=== PATIENT | female | born 1995 ===

== ENCOUNTER → 2020-03-22 09:15 | Outpatient (BNVA) | payer OTHER, SELFPAY | PROVIDERS: PCP Internal Medicine; Referring Provider Internal Medicine; Visit Provider Nurse Practitioner | DX: Z13.89 Encounter for screening for other disorder (principal) | CPT/HCPCS: 99212 ==

== ENCOUNTER → 2020-10-18 09:36 | Outpatient (BNVA) | payer OTHER, SELFPAY | PROVIDERS: PCP Internal Medicine; Visit Provider Nurse Practitioner ==

== ENCOUNTER → 2020-12-20 09:21 | Outpatient (BNVA) | payer OTHER, SELFPAY | PROVIDERS: PCP Internal Medicine; Visit Provider Nurse Practitioner ==

== ENCOUNTER 2021-01-14 11:00 | Outpatient (RCR) | payer OTHER, SELFPAY ==
--- NOTE | 2020-12-24 15:17 | MHC.PT.EP ---
[facility] [place] Office [place] Office [place] Office [address] [place] [address] [phone] F: [phone] F: [phone] F: [phone] F: [phone] Physical Therapy Plan of Care Date of Evaluation: Date of Surgery: Diagnosis: unspecified thoracic, thoracolumbar and lumbosacral spine Assessment: 25 y/o F referred to PT with unspecified thoracic, thoracolumbar and lumbosacral spine pain. Her pain started following the vaginal of her second child in July. 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 S/s consistent with instability and mild diastasis secondary to decreased lumbar/hip rotator AROM, decreased core and hip strength, poor TAC engagement, SI appears WNL but (+) thrush and prone insatbilty test, 3-finger diastasis recti above umbliicus, and pain with PA mobiltization L3-5. Recommend PT2x/week for 5 weeks to address impairments, implement HEP and optimize functional mobility. POC to include core stabilization, avoiding valsava, body mechanics, hip AROM, manual techniques, and taping as needed. Frequency and Duration: The patient will be seen 2x/week for 5 weeks Short Term Goals: 3 weeks 1. I with HEP 2. Improve hip ER AROM by 5 degrees 3. Perform TAC without cues properly. Jail Goals: 5 weeks 1. I with HEP and self management of sx 2. Pt will be able to lift > 25# with proper mechanics and pain < 3/10 3. 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 Manual therapy to restore motion and function. Therapeutic exercise to improve strength and flexibility. Neuromuscular re-education for posture and balance. Therapeutic activities to return to functional activities of daily living. Electronically signed by: Miriam Denney PT Please sign and return to therapist. Thank you for your referral.
--- NOTE | 2021-02-21 08:14 | MHC.PT.DC ---
[facility] [place] [facility] [place] [facility] [place] Office [address] [place] [address] [phone] F: [phone] F: [phone] F: [phone] F: [phone] Physical Therapy Discharge Report Diagnosis: unspecified thoracic, thoracolumbar and lumbosacral spine Date of Surgery: Date of Evaluation: 12/24/20 Date of Discharge: 02/21/21 Treatments to Date: 6 Cancellations to Date: 0 No Shows to Date: 0 Discharge Status: Improved Function Independent with HEP Discharge Summary: Pt did not f/u with final visit but was making good progress towards goals and was I with HEP. Electronically signed by: Miriam Denney PT DPT Please sign and return to therapist. Thank you for your referral.
== END 2021-02-21 08:15 | disposition home or self-care (01) ==
LOC: HO.PT 11:00
PROVIDERS: PCP Internal Medicine; Visit Provider Internal Medicine
DX: M51.9 Unspecified thoracic, thoracolumbar and lumbosacral intervertebral disc disorder (principal)
CPT/HCPCS: 97110; 97112; 97161; 97530

== ENCOUNTER 2023-02-23 10:11 | Emergency (ER) | payer OTHER, SELFPAY ==
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
[2023-02-23 10:20] VITALS: BP 121/72; BP 124/78; PULSE 67; PULSE 72; RESP 16; TEMP 36.7; O2SAT 99; BMI 22.2
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
[2023-02-23] MEDS: Acetaminophen 325 MG TABLET 650 MG PO (11:06)
[2023-02-23] MEDS: Ibuprofen 600 MG TABLET PO (11:06)
--- NOTE | 2023-02-23 11:14 | PC.NURSE ---
pt medicated per MAR
== END 2023-02-23 11:46 | disposition home or self-care (01) ==
PROVIDERS: Emergency Provider Emergency Medicine; PCP Internal Medicine
DX: S13.4XXA Sprain of ligaments of cervical spine, initial encounter (principal); S00.83XA Contusion of other part of head, initial encounter; V43.52XA Car driver injured in collision with other type car in traffic accident, initial encounter; M25.561 Pain in right knee; Y93.89 Activity, other specified; Y92.414 Local residential or business street as the place of occurrence of the external cause; Y99.9 Unspecified external cause status
CPT/HCPCS: 70450; 72125; 73564; 99283; 99284

== ENCOUNTER 2024-02-18 08:36 | Outpatient (AMB) | payer OTHER, SELFPAY ==
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
[2024-02-18 08:41] VITALS: BP 110/70; BMI 21.0
== END 2024-02-18 09:24 | disposition home or self-care (01) ==
LOC: HO.HMCH 08:36
PROVIDERS: PCP Internal Medicine; Visit Provider Internal Medicine
DX: Z72.0 Tobacco use (principal); J45.20 Mild intermittent asthma, uncomplicated; K64.0 First degree hemorrhoids; L81.9 Disorder of pigmentation, unspecified; Z23 Encounter for immunization

== ENCOUNTER → 2024-02-18 08:36 | Outpatient (BNVA) | payer OTHER, SELFPAY | PROVIDERS: PCP Internal Medicine; Visit Provider Internal Medicine | DX: Z23 Encounter for immunization (principal); J45.20 Mild intermittent asthma, uncomplicated; K64.0 First degree hemorrhoids; L81.9 Disorder of pigmentation, unspecified; Z72.0 Tobacco use | CPT/HCPCS: 90471; 90656; 96127; 99212 ==

== ENCOUNTER 2024-02-25 09:30 | Outpatient (AMB) | payer OTHER, SELFPAY ==
[2024-02-25 09:32] VITALS: BMI 21.0
--- NOTE | 2024-02-25 09:32 | A.OFFVIS_ITS ---
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 Started 1 yr ago and getting worse. 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 She states it initially started on her right lower extremity approximately a year ago, states that when the weather gets colder it seems to get darker. She denies any pain and denies any itchiness. Complaints include slight swelling of lower extremities, cramping, fatigue, and heaviness of the lower extremities, especially towards the end of the day. It has been affecting their daily activities including walking and standing. It is noted more so in left; however, it started in her right lower leg. She does smokes 3 cigarettes a day. She is on her feet most of her day. She is not a diabetic Patient denies any previous venous surgery or injections. Patient denies any history of DVT/ PE. Patient denies any history of phlebitis. Trial of compression includes - nothing at this point They now present for vascular evaluation regarding their varicose veins. PENDING SALE TO [facility] Medical History Irritable bowel syndrome Attention deficit disorder Anxiety Asthma Tobacco abuse Surgical History History of esophagogastroduodenoscopy (EGD) Hx of colonoscopy No pertinent past surgical history Family History Father Medical history unknown Mother No problems noted. 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 Cognitive needs: No Hearing needs: No Vision needs: Yes (Glass) Review of Systems Const Reports as per HPI and Denies weakness ENT Reports Normal hearing present and Denies dizziness Card Reports as per HPI, Denies chest pain, Denies chest pain at rest, Denies chest pain with activity, Denies dyspnea and Denies dyspnea on exertion Resp Reports as per HPI, Denies cough, Denies dyspnea and Denies dyspnea on exertion GI Reports as per HPI, Denies abdominal pain, Denies nausea and Denies vomiting Musc Denies numbness Skin/Breast Reports as per HPI, Denies erythema and Denies wounds Neuro Reports Normal hearing present, Denies dizziness, Denies numbness, Denies Sensory deficit (Neuro) and Denies weakness Psych Reports no additional complaints Endo Reports no additional complaints Physical Exam Vital Signs: BMI result Body Mass Index 21.0 Const General: healthy appearing and no acute distress Orientation/consciousness: patient oriented x3 HEENT Head: Yes normal to inspection Ears: hearing grossly normal bilaterally Mouth: Normal oral and palatal mucosa present Resp Effort & Inspection: normal respiratory effort and able to speak in complete sentences Auscultation: clear to auscultation bilaterally Cardio Jugular venous distension: no JVD Rate: regular rate Rhythm: regular rhythm Heart sounds: S1 normal heart sound present and S2 normal heart sound present Bruits: no abdominal aortic bruits, no carotid bruits, no femoral bruits and no renal bruits Peripheral pulses: Peripheral pulses 2+ throughout GI Inspection: Yes normal to inspection Palpation (GI): No Abdominal aortic bruit present Skin General skin exam: no rashes or lesions noted Wounds: no wounds Hair: normal Neuro General: patient oriented x3 Cranial nerves: Yes Normal hearing present Cognition (Neuro): normal cognition Gait exam (Neuro): Normal gait present Motor exam (neuro): 5/5 motor strength present throughout Sensory Exam: No Sensory deficit (Neuro) Extrem Other: Left lower extremity: mottling (deeper red) in a lacy like pattern from just above her knee, circling down the tibial plateau and towards the medial aspect of her manley. Not painful to palpation. Palpable DP pulses. Right lower extremity: same mottling noted, in a smaller section on the medial aspect of her manley, and decreased in color General: Yes normal to inspection, Yes full ROM, Yes capillary refill normal and Yes normal gait Assessment & Plan Assessment & Plan (1) Varicose veins of both lower extremities with inflammation: Code(s): I83.11 - Varicose veins of right lower extremity with inflammation; I83.12 - Varicose veins of left lower extremity with inflammation Category: Medical Plan: Birdie is presenting today as a referral from her PCP for ongoing discoloration over bilateral lower extremities. She denies any trauma to the area. She currently is healthy with no significant medical conditions. She states this has been going on for about a year now. It initially started on her right leg and now has expanded to her left lower extremity. She denies any pain or itchiness at the sites. She does endorse she gets some heavy legs with some swelling towards the end of the day, she does spend most of her days on her feet. We will work her up for venous insufficiency, we did order a US. In short, the patient has evidence of venous insufficiency. I have discussed the pathophysiology with the patient. In addition I have provided informational material regarding venous disease to the patient. We have discussed conservative measures including compression, elevation, and exercise. I have also provided a handout regarding appropriate use of compression stockings and where to purchase good compression stockings as well. I have taken the liberty of ordering venous insufficiency testing with the patient. They will follow up with me after testing. Upon further investigation after the patient left, it appears that the skin is in a livedo reticularis pattern. We will continue with the venous insufficiency testing to rule that out. The patient had an opportunity to ask questions regarding the treatment plan. All questions were answered. No major barriers to understanding were identified. The patient expressed understanding and agreement with the above treatment plan . The patient is aware they should contact our office by phone for worsening of the current condition or the appearance of new symptoms. Thank you for allowing me to participate in the vascular care of this patient. If you have any questions or concerns regarding the treatment for the above condition please do not hesitate to contact me. The office telephone contact is [phone]. This note is constructed using voice recognition software. While every effort has been made to ensure accuracy, hims clerk errors may have been included. Thank you for allowing me to participate in the care of your patient. Yours sincerely, DRISS Holguin Orders: Orders US venous duplex LE BI 1 Week I83.11 - Varicose veins of right lower extremity with inflammation, I83.12 - Varicose veins of left lower extremity with inflammation Coding Level of Care Code New Pt Level 4 (94569) Diagnoses Varicose veins of both lower extremities with inflammation I83.11; I83.12
== END 2024-02-25 09:46 | disposition home or self-care (01) ==
PROVIDERS: PCP Internal Medicine; Visit Provider Physician Assistant Surgical
DX: I83.11 Varicose veins of right lower extremity with inflammation (principal); I83.12 Varicose veins of left lower extremity with inflammation
CPT/HCPCS: 99204

== ENCOUNTER → 2024-02-25 09:30 | Outpatient (BNVA) | payer OTHER, SELFPAY | PROVIDERS: PCP Internal Medicine; Visit Provider Physician Assistant Surgical | DX: I83.11 Varicose veins of right lower extremity with inflammation (principal); I83.12 Varicose veins of left lower extremity with inflammation | CPT/HCPCS: 99202 ==

== ENCOUNTER 2024-02-28 15:24 | Outpatient (AMB) | payer OTHER, SELFPAY ==
[2024-02-28 15:26] VITALS: BMI 21.0
--- NOTE | 2024-02-28 15:26 | MHC.OFFVIS ---
Vital Signs 02/28/24 15:26 Height 5 ft 4.5 in Weight 123 lb 15.984 oz BMI 21.0 Intake Visit Reasons: Hemorrhoids Intake Note: This patient presents for hemorrhoids. Pt c/o; Onset over 1 year, reports rectal bleeding and pain. 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 She says that she has had hemorrhoids since she was about 5 years ago. However, she has been noticing worsening of discomfort and pain. She was also notice bleeding on and off. She says that the hemorrhoids as mostly outside all the time now. She denies any problems with constipation. She says she was healthy otherwise also does have some IBS. [facility] Medical History Hemorrhoids with complication Irritable bowel syndrome Attention deficit disorder Anxiety Asthma Tobacco abuse Surgical History History of esophagogastroduodenoscopy (EGD) Hx of colonoscopy No pertinent past surgical history Family History Father Medical history unknown Mother No problems noted. 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 A smaller hemorrhoidal column was seen posteriorly as well. Palpation (GI): Soft to palpation, nontender and no guarding Neuro General: patient oriented x3 Office Procedures Anoscopy She was in lucio-knife position. The anoscope was gently inserted. A full examination of the anal canal was done. She did have a large external hemorrhoidal column with a an internal component on the anterior aspect. There was another hemorrhoidal column on the posterior on the left. There were no other lesions. There was no fissure. There was no bleeding. There was no tenderness or induration. [id number] Assessment & Plan Assessment & Plan (1) Hemorrhoids with complication: Code(s): K64.8 - Other hemorrhoids Category: Medical Plan: She has internal external hemorrhoids as described above. The large column posteriorly. She says that this has been bothering her with pain, tenderness and discomfort as well as bleeding and this have been worsening over the years. She wants to proceed with hemorrhoidectomy. I had a long discussion with her about the technique of the procedure. I explained the risks including but not limited to bleeding, infections, postop pain and poor healing, as well as the benefits and alternatives. I also reviewed with her what to expect postoperatively. She had understands and wants to proceed. Coding Level of Care Code New Pt Level 3 (77264) Diagnoses Hemorrhoids with complication K64.8 CPT Codes Details - CPT: 14462-[id number] ([id number])
== END 2024-02-28 15:44 | disposition home or self-care (01) ==
PROVIDERS: PCP Internal Medicine; Visit Provider Surgery
DX: K64.8 Other hemorrhoids (principal)
CPT/HCPCS: 46600; 99203

== ENCOUNTER → 2024-02-28 15:24 | Outpatient (BNVA) | payer OTHER, SELFPAY | PROVIDERS: PCP Internal Medicine; Visit Provider Surgery | DX: K64.8 Other hemorrhoids (principal) | CPT/HCPCS: 46600; 99202 ==

== ENCOUNTER 2024-03-16 10:20 | Outpatient (REF) | payer OTHER, SELFPAY | END 2024-03-16 10:21 | disposition home or self-care (01) | LOC: HO.US 10:20 | PROVIDERS: PCP Internal Medicine; Visit Provider Physician Assistant Surgical | DX: I83.11 Varicose veins of right lower extremity with inflammation (principal); I83.12 Varicose veins of left lower extremity with inflammation | CPT/HCPCS: 93970 ==

== ENCOUNTER → 2024-03-16 10:22 | Outpatient (BNV) | payer OTHER, SELFPAY | PROVIDERS: PCP Internal Medicine; Visit Provider Radiology Diagnostic Radiology | DX: I83.12 Varicose veins of left lower extremity with inflammation (principal) | CPT/HCPCS: 93970 ==

== ENCOUNTER 2024-03-17 07:45 | Day surgery (SDC) | payer OTHER, SELFPAY ==
[2024-03-15 10:10] VITALS: BMI 21.0
--- NOTE | 2024-03-16 10:18 | HO.ANESPROP2 ---
Documented by User: Francisca Cramer NP 03/16/24 10:18 HPI - Anesthesia Eval Consult details Narrative: 28yo F for EUA,Hemorrhoidectomy PMFSH Active Problems Active Problems: All Active Problems Hemorrhoids with complication (Acute) Varicose veins of both lower extremities with inflammation (Acute) Mottled skin (Acute) Hemorrhoids (Acute) Screening for diabetes mellitus (DM) (Acute) Screening for hypothyroidism (Acute) Lumbar spine pain (Acute) Annual physical exam (Acute) Abdominal cramping (Acute) Diarrhea (Acute) Attention deficit disorder (Acute) Anxiety (Acute) Asthma (Acute) Tobacco abuse (Acute) Past Medical History Medical History Hemorrhoids with complication Irritable bowel syndrome Attention deficit disorder Anxiety Asthma Tobacco abuse Family History Family History Father Medical history unknown Mother No problems noted. Brother Asthma Other Mental health disorder Surgical History Surgical History History of esophagogastroduodenoscopy (EGD) Hx of colonoscopy No pertinent past surgical history Social History Social History Housing: House Alcohol intake: current Alcohol intake frequency: holidays/special occasions only Patient Tobacco Use Status: Current everyday Tobacco user Tobacco use type: Cigarette Cigarette Packs Per Day: 0.25 Cigarettes Per Day: 5 e-Cigarette/Vaping Use: Never Used Second Hand Smoke Exposure: Yes Use of substances other than those prescribed or required for medical reasons: Yes Substance Use Type: Marijuana Mormonism Healthcare Practices: Orthodox Advance Directives: No (mother is primary contact) Advance Directives Information Provided: Yes service: No Current occupational status: employed 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 Cognitive needs: No Hearing needs: No Vision needs: Yes (Glass) Meds Allergies Allergy/AdvReac Type Severity Reaction Status Date / Time No Known Allergies Allergy Verified 03/17/24 08:25 Home Medications ?Medication ?Instructions ?Recorded ?Confirmed ?Last Taken ?Type albuterol sulfate 90 mcg/actuation 2 puff inhalation Q6H PRN 03/15/24 03/17/24 Unknown History aerosol inhaler (Ventolin HFA) Shortness Of Breath Or Wheezing desogestrel-e.estradiol 0.15 1 tab PO DAILY 03/17/24 03/17/24 Unknown History mg-0.02 mg(21)/e.estrad 0.01 mg(5) tablet (Kariva (28)) Exam Height,Weight and Vital Signs: Height 5 ft 4.5 in Weight 56.245 kg Assessment and Plan Assessment Anesthesia Assessment: Chart Reviewed Documented by User: Amparo Encarnacion MD 03/17/24 09:05 [facility] Past Medical History Medical History Hemorrhoids with complication Irritable bowel syndrome Attention deficit disorder Anxiety Asthma Tobacco abuse Family History Family History Father Medical history unknown Mother No problems noted. Brother Asthma Other Mental health disorder Family history of problems with anesthesia: No Surgical History Surgical History History of esophagogastroduodenoscopy (EGD) Hx of colonoscopy No pertinent past surgical history History of Problems with Anesthesia: No Social History Social History Housing: House Alcohol intake: current Alcohol intake frequency: holidays/special occasions only Patient Tobacco Use Status: Current everyday Tobacco user Tobacco use type: Cigarette Cigarette Packs Per Day: 0.25 Cigarettes Per Day: 5 e-Cigarette/Vaping Use: Never Used Second Hand Smoke Exposure: Yes Use of substances other than those prescribed or required for medical reasons: Yes Substance Use Type: Marijuana Mormonism Healthcare Practices: Orthodox Advance Directives: No (mother is primary contact) Advance Directives Information Provided: Yes service: No Current occupational status: employed 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 Cognitive needs: No Hearing needs: No Vision needs: Yes (Glass) Meds Allergies Allergy/AdvReac Type Severity Reaction Status Date / Time No Known Allergies Allergy Verified 03/17/24 08:25 Home Medications ?Medication ?Instructions ?Recorded ?Confirmed ?Last Taken ?Type albuterol sulfate 90 mcg/actuation 2 puff inhalation Q6H PRN 03/15/24 03/17/24 Unknown History aerosol inhaler (Ventolin HFA) Shortness Of Breath Or Wheezing desogestrel-e.estradiol 0.15 1 tab PO DAILY 03/17/24 03/17/24 Unknown History mg-0.02 mg(21)/e.estrad 0.01 mg(5) tablet (Kariva (28)) Exam Airway Mallampati Class: II TM Dist: >3cm Neck ROM: Full Heart: rirr Lungs: cta Assessment and Plan Assessment Anesthesia Assessment: Anesthesia Plan Discussed Final Anesthetic Review Family History of Problems with Anesthesia: No History of Problems with Anesthesia: No NPO: Yes ASA Class: II Final Preanesthetic Review: No Changes in Pt Med Stat, Meds/Allgs Chart Reviewed and Consent Obtained/Reviewed Patient Risk: Low Procedure Risk: Low Anesthetic Plan Anesthetic Plan: GA Disposition: Standard PACU
[2024-03-17] VITALS (11 sets, daily range): BP systolic 115–138; BP diastolic 65–83; PULSE 72–108; RESP 14–16; TEMP 36.4–37.2; O2SAT 97–100; BMI 21.1
[2024-03-17 08:25] LABS: UPreg QC Valid YES; Urine Pregnancy NEGATIVE (NEGATIVE)
[2024-03-17] MEDS: Lactated Ringers 1,000 ML 100 ML IVCONT (08:42)
--- NOTE | 2024-03-17 09:16 | MHC.SHP ---
Pre-Procedural Eval Section A - 24 Hr Update-Section A only Date of Service: 03/17/24 The patient is an INPATIENT: No Changes since office visit: No Cold of Flu in the past 2 weeks, No New Medical Problems, No Changes in Medication and No Patient answered all questions The patient has been examined within 24 hours of the surgical procedure. The History & Physical has been completed within 30 days and I have reviewed it.: Yes Section B - Complete if H&P > 30 days Chief Complaint: Other hemorrhoids Allergies: Allergies Allergy/AdvReac Type Severity Reaction Status Date / Time No Known Allergies Allergy Verified 03/17/24 08:25 Plan I have reviewed the history and physical and performed a pertinent physical examination on my patient. No changes have occurred unless specified. Time Spent With Patient Time: Total time managing care of this patient today ____ minutes.
--- NOTE | 2024-03-17 10:03 | P.OP_ITS ---
Operative Note Operative Note Date of Service: 03/17/24 Narrative: Preop diagnosis: Internal external hemorrhoids with pain and bleeding Postop diagnosis: The same Procedure: Exam under anesthesia hemorrhoidectomy x2 columns Surgeon: Donald Bradford MD The patient is a 28-year-old female who has had chronic complaints with frequent pain and bleeding with her hemorrhoids and wanted to proceed with hemorrhoidectomy. She understood the technique of the planned procedure as well as the risks, benefits, and alternatives She was brought to the operating room. She was placed in prone lucio-knife position under general anesthesia via endotracheal tube. The buttocks were retr acted with wide tape laterally. The perianal area was prepped and draped in the usual sterile fashion. A surgical time-out was done. The patient received Cefotan 2 g IV preoperatively Examination of the anal orifice revealed in prominent external hemorrhoidal column on the left anterior as well as the posterior aspect I inserted the Roma Quintanilla retractor. I examined the anal canal circumferen tially there were no other lesions. The hemorrhoidal columns were noted to be mixed I applied a Orantes grasper at the hemorrhoidal column on the left anterior. I made a anprbw-pf-woimq stitch at the pedicle using a chromic 3-0. I made an incision around this hemorrhoidal column to the perianal skin with a blade 15. I excised this hemorrhoidal column along this incision above the sphincters using scissors. I closed this incision with a running chromic 3-0 stitch Additional hemostatic sutures were placed I then applied a Orantes grasper at the hemorrhoidal column on the anterior area. I made a sxjapj-ja-sarqb stitch at the pedicle and made an incision around this hemorrhoidal column to the perianal skin. I excised this hemorrhoidal column above the plane of the sphincters using scissors. I closed this incision with a running chromic 3-0 stitch. Additional hemostatic sutures were placed Once hemostasis was confirmed, I infiltrated the perianal area with Marcaine 0.5% for postop analgesia a Gelfoam packing was applied. The procedure was completed The patient tolerated procedure well. There were no immediate complications. Initial and final counts of sponges and instruments were correct. Estimated blood loss was about 40 cc The patient was extubated without difficulty and transferred to the recovery room with stable vital signs
[2024-03-17] MEDS: oxyCODONE HCl Immed Release 5 MG TABLET PO (10:20)
[2024-03-17] MEDS: fentaNYL citrate/PF 100 MCG/2 ML VIAL 50 MCG IVPUSH ×2 (10:26→10:40)
== END 2024-03-17 13:35 | disposition home or self-care (01) ==
PROVIDERS: Nurse Practitioner; PCP Internal Medicine; Visit Provider Surgery
PROC: (CPT 46260; principal; 2024-03-17 09:50)
DX: K64.8 Other hemorrhoids (principal); K64.4 Residual hemorrhoidal skin tags; K58.9 Irritable bowel syndrome, unspecified; J45.909 Unspecified asthma, uncomplicated; F41.9 Anxiety disorder, unspecified; F98.8 Other specified behavioral and emotional disorders with onset usually occurring in childhood and adolescence; Z79.899 Other long term (current) drug therapy; F17.210 Nicotine dependence, cigarettes, uncomplicated
CPT/HCPCS: 46260; 81025; 88304; J1100; J2003; J2250; J2405; J2704; J2795; J3010

== ENCOUNTER → 2024-03-17 07:45 | Outpatient (BNV) | payer OTHER, SELFPAY | PROVIDERS: PCP Internal Medicine; Visit Provider Surgery | DX: K64.8 Other hemorrhoids (principal) | CPT/HCPCS: 46260 ==

== ENCOUNTER 2024-03-30 10:13 | Outpatient (AMB) | payer OTHER, SELFPAY ==
--- NOTE | 2024-03-30 10:17 | A.OFFVIS_ITS ---
Intake Visit Reasons: S/P EUA, hemorrhoidectomy Intake Note: This patient presents for post-op status post EUA, hemorrhoidectomy x2 columns. Pt c/o; no concerns. Site healing well. Rod Cup Filler Required: No Accompanied by: Self / Same As Patient Allergies No Known Allergies Allergy (Verified 03/30/24 10:20) HPI HPI S/P EUA, hemorrhoidectomy: Details: She underwent exam under anesthesia and hemorrhoidectomy x2 columns 2 weeks ago. She tolerated the procedure well. She is here for postop visit and says she is doing well. She has minimal pain. She says she has good bowel movements. [facility] Medical History Hemorrhoids with complication Irritable bowel syndrome Attention deficit disorder Anxiety Asthma Tobacco abuse Surgical History History of hemorrhoidectomy (~03/17/24) History of esophagogastroduodenoscopy (EGD) Hx of colonoscopy No pertinent past surgical history Family History Father Medical history unknown Mother No problems noted. 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 Her hemorrhoidectomy sites are well healed. Her path report shows 1 area with a focal condylomatous lesion which is adequately excised. Otherwise the rest of the specimen showed hemorrhoidal tissue She can follow up on a p.r.n. basis. I advised her on the importance of avoi ding straining and constipation. Coding Level of Care Code Global (18509) Diagnoses Hemorrhoids with complication K64.8
== END 2024-03-30 10:30 | disposition home or self-care (01) ==
PROVIDERS: PCP Internal Medicine; Visit Provider Surgery
DX: K64.8 Other hemorrhoids (principal)
CPT/HCPCS: 99024

== ENCOUNTER → 2024-03-30 10:13 | Outpatient (BNVA) | payer OTHER, SELFPAY | PROVIDERS: PCP Internal Medicine; Visit Provider Surgery | DX: K64.8 Other hemorrhoids (principal) | CPT/HCPCS: 99212 ==

== ENCOUNTER 2024-06-08 09:24 | Outpatient (AMB) | payer OTHER, SELFPAY ==
--- NOTE | 2024-06-08 09:34 | A.OFFVIS_ITS ---
Intake Visit Reasons: follow up s/p US 03/16/24 Intake Note: Patient presents for follow up US performed on 03/16/24. No complaints. Accompanied by: Self / Same As Patient Allergies No Known Allergies Allergy (Verified 06/08/24 09:34) HPI HPI follow up s/p US 03/16/24: Details: Birdie is presenting today as a follow up to venous insufficiency ultrasound, performed on 03/16/2024. She states she continues with a lacy-type rash on her lower extremities, not any worse but not any better. She denies any increased swelling or pain. She has no new complaints today. [facility] Medical History Hemorrhoids with complication Irritable bowel syndrome Attention deficit disorder Anxiety Asthma Tobacco abuse Surgical History History of hemorrhoidectomy (~03/17/24) History of esophagogastroduodenoscopy (EGD) Hx of colonoscopy No pertinent past surgical history Family History Father Medical history unknown Mother No problems noted. 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 Cognitive needs: No Hearing needs: No Vision needs: Yes (Glass) Review of Systems Const Reports as per HPI and Denies weakness ENT Reports Normal hearing present and Denies dizziness Card Reports as per HPI, Denies chest pain, Denies chest pain at rest, Denies chest pain with activity, Denies dyspnea and Denies dyspnea on exertion Resp Reports as per HPI, Denies cough, Denies dyspnea and Denies dyspnea on exertion GI Reports as per HPI, Denies abdominal pain, Denies nausea and Denies vomiting Musc Denies numbness Skin/Breast Reports as per HPI, Denies erythema and Denies wounds Neuro Reports Normal hearing present, Denies dizziness, Denies numbness, Denies Sensor y deficit (Neuro) and Denies weakness Psych Reports no additional complaints Endo Reports no additional complaints Physical Exam Const General: healthy appearing and no acute distress Orientation/consciousness: patient oriented x3 HEENT Head: Yes normal to inspection Ears: hearing grossly normal bilaterally Mouth: Normal oral and palatal mucosa present Resp Effort & Inspection: normal respiratory effort and able to speak in complete sentences Auscultation: clear to auscultation bilaterally Cardio Jugular venous distension: no JVD Rate: regular rate Rhythm: regular rhythm Heart sounds: S1 normal heart sound present and S2 normal heart sound present Bruits: no abdominal aortic bruits, no carotid bruits, no femoral bruits and no renal bruits Peripheral pulses: Peripheral pulses 2+ throughout GI Inspection: Yes normal to inspection Palpation (GI): No Abdominal aortic bruit present Skin General skin exam: no rashes or lesions noted Wounds: no wounds Hair: normal Neuro General: patient oriented x3 Cranial nerves: Yes Normal hearing present Cognition (Neuro): normal cognition Gait exam (Neuro): Normal gait present Motor exam (neuro): 5/5 motor strength present throughout Sensory Exam: No Sensory deficit (Neuro) Extrem Other: Left lower extremity: mottling (deeper red) in a lacy like pattern from just above her knee, circling down the tibial plateau and towards the medial aspect of her manley. Not painful to palpation. Palpable DP pulses. Right lower extremity: same mottling noted, in a smaller section on the medial aspect of her manley, and decreased in color General: Yes normal to inspection, Yes full ROM, Yes capillary refill normal and Yes normal gait Results Reviewed Results Reviewed: Brief summary of venous insufficiency testing is as follows: right great saphenous vein: negative right small saphenous vein: negative right accessory vein: none present left great saphenous vein: negative left small saphenous vein: negative left accessory vein: none present Please note there is no evidence of any venous aneurysms or significant tortuosity Assessment & Plan Assessment & Plan (1) Varicose veins of both lower extremities with inflammation: Code(s): I83.11 - Varicose veins of right lower extremity with inflammation; I83.12 - Varicose veins of left lower extremity with inflammation Category: Medical Plan: Birdie is presenting today for a follow up to venous insufficiency ultrasound, performed on 03/16/2024. She states she continues with a lacy type rash on her bilateral lower extremities but denies any swelling or pain at this point. There was no insufficiency noted on ultrasound. We discussed that, after some which are up-to-date and other medical sites, it looks like the discoloration appears to be like a livedo reticularis rash. I discussed with her that she should follow up with her PCP for evaluation of the ongoing discoloration. We discussed to continue with compression stockings, elevation, and physical activity. We discussed if she has any vascular concerns, she can reach out to us any point. Thank you for allowing us to participate in the patient's care. If there are any questions or concerns, please do not hesitate to reach out to us. Coding Level of Care Code Est Pt Level 4 (30811) Diagnoses Varicose veins of both lower extremities with inflammation I83.11; I83.12 Comment Review of venous insufficiency ultrasound
--- OUTSIDE RECORDS SUMMARY | 2024-06-08 10:36 | XMS_ITS | Clinical Summary ---
Author Organization [facility] Address [address] [place] [address] Care Team Providers Care Sample Driller Name Role Phone Bandar Lewis MD Primary Care Provider [phone] Surgical History Surgery Date Site/Laterality Comments OTHER SURGICAL HISTORY PROCEDURE: DENIES PREVIOUS SURGERY Medical History Medical History Date Comments Depression with anxiety DX:Depre ssion with anxiety Bipolar disorder (CMS/HCC) DX:Bi polar disorder (HCC); COMMENT: therapist at [facility] [place] Fibromyalgia DX:Fibromyalgia IBS (irritable bowel syndrome) D X:IBS (irritable bowel syndrome) Carpal tunnel syndrome DX:Carpal tunnel syndrome; COMMENT: Bilateral Family History Medical History Relation Name Comments Asthma Brother half sibling, m aternal No Known Problems Father no paterna l hx known, pt doesnt know father Dementia Maternal Grandfather No Known Problems Maternal Grandmother Other: fibromyalgia Mother Thyroid disease Mother Breast cancer Mother's side 1 great aunts 2, 1 is still alive Ovarian cancer Mother's side 2 1 great au nt No Known Problems Paternal Grandfather no paternal hx known, pt doesnt know father No Known Problems Paternal Grandmother no paternal hx known, pt doesnt know father Cervical cancer Neg Hx Colon cancer Neg Hx Uterine cancer Neg Hx Relation Name Status Comments Brother Alive Father Other unknown Maternal Grandfather Alive Maternal Grandmother Alive Mother Alive Mother's side 1 Other Mother's side 2 Alive Paternal Grandfather Other Paternal Grandmother Other Social History Tobacco Use Types Packs/Day Years Used Date Smoking Tobacco: Former Cigarettes Q uit: 12/09/2017 Smokeless Tobacco: Never Alcohol Use Standard Drinks/Week Comments Yes 0 (1 standard drink = 0.6 oz pur e alcohol) Comments Unknown Sex and Gender Information Value Date Recorded Sex Assigned at Not on file Legal Sex Female 4:56 PM EST Gender Identity Not on file Sexual Orientation Not on file Obstetrics History Plan of Treatment Health Maintenance Due Date Last Done Comments Hepatitis B Vaccines (1 of 3 - 19+ 3-dose series) 08/25/2015 Cervical Cancer Screening: P ap Smear 09/05/2023 09/04/2020, 12/28/2017 COVID-19 Vaccine (2 - 2023-2 5 season) 2023 10/16/2020 Influenza Vaccine (#1) 2023 0, 12/28/2017 DTaP,Tdap,and Td Vaccines (3 - Td or Tdap) 06/12/2030 06/12/2020, 04/25/2018 HIB Vaccines Aged Out No longer eligi ble based on patient's age to complete this topic HPV Vaccines Aged Out No longer eligi ble based on patient's age to complete this topic Hepatitis A Vaccines Aged Out No long er eligible based on patient's age to complete this topic IPV Vaccines Aged Out No longer eligi ble based on patient's age to complete this topic MMR Vaccines Aged Out No longer eligi ble based on patient's age to complete this topic Meningococcal ACWY Vaccine Aged Out N o longer eligible based on patient's age to complete this topic Meningococcal B Vacine Aged Out No lo nger eligible based on patient's age to complete this topic Pneumococcal Vaccine: Pediatrics (0 to 5 Years) and At-Risk Patients (6 to 64 Years) Aged Out No longer eligible b ased on patient's age to complete this topic RSV Immunization Patients Under 20 months Aged Out No longer eligible b ased on patient's age to complete this topic Varicella Vaccines Aged Out No longer eligible based on patient's age to complete this topic Procedures Procedure Name Priority Date/Time Associated Diagnosis Comments PAP SMEAR Routine 09/04/2020 from Last 3 Months or Most Recently Relevant to Health Maintenance Results * Pap smear (09/04/2020) 09/04/2020 Narrative HISTORICAL TESTING LAB RESULTING AGENCY - 09/16/2020 1:01 PM EDT [id number] THINPREP PAP, IMAGED: NEGATIVE FOR SQUAMOUS INTRAEPITHELIAL LESION AND MALIGNANCY . REACTIVE CELLULAR CHANGES. RJ TARIQ(ASCP) (CASE SCREENED 09 12 2020) MAMADOU CORRAL M.D. , PATHOLOGIST (CASE ELECTRONICALLY SIGNED 09 13 2020) ADEQUACY: SATISFACTORY ENDOCERVICAL/TRANSFORMATION ZONE COMPONENT PRESENT. SOURCE: THINPREP PAP HPV IF ASCUS, CERVICAL, IMAGED CLINICAL INFORMATION: HPV IF DIAGNOSIS OF ASCUS. POST , PAP HX NEG, Z12.4 Sara Medina [facility] LAB CYTOLOGY ORDERABLES Final Result HISTORICAL TESTING LAB RESULTING AGENCY from Last 3 Months or Most Recently Relevant to Health Maintenance Care Teams Sample Driller Relationship Specialty Start Date End Date Bandar Lewis MD [address] [place] [address] Dr [address] [facility] [place] [address] PCP - General Internal Medicine 10/12/18
--- OUTSIDE RECORDS SUMMARY | 2024-06-08 10:36 | XMS_ITS | Encounter Summary ---
Author Organization [facility] Address [address] [place] [address] Phone Care Team Providers Care Operations Consultant Name Role Phone Courtney Hall NP Primary Care Provider Gisella benson Encounter Details Date Type Department Care Team (Late st Contact Info) Description 01/07/2010 Documentation [facility] [place] [facility] [place] [address] Family Medicine, Physician [facility] [place] [id number] Social History Tobacco Use Types Packs/Day Years Used Date Smoking Tobacco: Never Assessed Comments Unknown Sex and Gender Information Value Date Recorded Sex Assigned at Not on file Legal Sex Female 5:13 PM EDT Gender Identity Not on file Sexual Orientation Not on file documented as of this encounter Plan of Treatment Not on file documented as of this encounter Visit Diagnoses Not on filedocumented in this encounter Care Teams Operations Consultant Relationship Specialty Start Date End Date Courtney Hall NP PCP - General 11/20/16 07/16/22 documented as of this encounter
--- OUTSIDE RECORDS SUMMARY | 2024-06-08 10:36 | XMS_ITS | Encounter Summary ---
Author Organization [facility] Address [address] [place] [phone] Phone Care Team Providers Care Industrial Machinery Mechanic Name Role Phone Courtney Hall NP Primary Care Provider Gisella benson Encounter Details Date Type Department Care Team (Late st Contact Info) Description 01/07/2010 Documentation [facility] [place] [facility] [place] [address] Family Medicine, Physician [facility] [place] [id number] Social History Tobacco Use Types Packs/Day Years [...] on filedocumented in this encounter Care Teams Industrial Machinery Mechanic Relationship Specialty Start Date End Date Courtney Hall NP PCP - General 11/20/16 07/16/22 documented as of this encounter
--- OUTSIDE RECORDS SUMMARY | 2024-06-08 10:36 | XMS_ITS | Clinical Summary ---
Author Organization [facility] Address [address] [place] [phone] Phone Care Team Providers Care Ingot Buggy Operator Name Role Phone Unavailable Primary Care Provider Unavailabl e Allergies No known active allergies Medications ibuprofen 600 MG tablet TAKE 1 TAB BY MOUTH EVERY 6 HOURS NEEDED FOR PAIN FOR UP TO 30 DAYS. 0 7 Active albuterol HFA (PROAIR HFA) 108 (90 BASE) MCG/ACT inhaler PROAIR HFA; inhale 2 puff by inhalation route every 4 - 6 hours as needed; 90 MCG; 06/12/2014; Active 5 Active MedroxyPROGESTE Jose G Acetate 150 MG/ML suspension prefilled syringe Inject 150 mg into the muscle. 7 Active Active Problems Problem Noted Date Diagnosed Date Anxiety and depression 03/11/2016 Bipolar disorder 03/11/2016 Fibromyalgia 03/11/2016 IBS (irritable bowel syndrome) 03/11/2016 ADHD 06/12/2014 PTSD (post-traumatic stress disorder) 08/19/2009 Immunizations Immunization Administration Dates Next Due DTaP 5 09/28/2001, 8,02/19/1997,12/20,1996 H1N1 01/30/2009 HPV, Quadrivalent 01/01/2009,02/10/2008,12/09/19 08 Hep A, ped/adol 01/15/2014,11/17/2010 Hep B, ped/adol 04/15/2015, 5,06/09/1997,11/09,1996 Hib (PRP-T) 12/03/1997, 7,1996,10/30 IPV 09/28/2001 Influenza, injectable, quadrivalent 04/15/2015 Influenza, injectable, quadr ivalent, preservative free 01/13/2017 Influenza, injectable, trivalent 01/01/2009 Influenza, intranasal, quadrivalent 01/15/2014,0 04/25/2013 Influenza, intranasal, trivalent 12/29/2011,12/12 MMR 09/28/2001,12/03/1997 Meningococcal Conj (Menactra) MCV4P 02/06/2014,0 12/09/2007 OPV 02/19/1997,1996,1996 Tdap 12/09/2007 Varicella 12/09/2007,09/09/1998 Family History Relation Name Status Comments Father Alive Father: Alive a nd well Half-Brother Alive Half brother (M ): Alive and well Mother Alive Mother: Migrain es, Migraines Other Family history of Obesity, No family history of Thrombophilia, No family history of Developmental dislocation of hip, No family history of Dental caries, No family history of CVA (Stroke), No family history of Seizure disorder, No family history of Deafness, No family history of Heart disease, Family history of Diabetes mellitus, Family history of Obesity, No family history of Thrombophilia, Family history of Diabetes mellitus, Family history of ADD/ADHD, Family history of Asthma, No family history of Cancer, Family history of ADD/ADHD, No family history of Strabismus, No family history of Hyperlipidemia, Family history of Asthma, Family history of Autism Social History Tobacco Use Types Packs/Day Years Used Date Smoking Tobacco: Some Days Smokeless Tobacco: Current Comments:Current some day sm oker Comments Unknown Sex and Gender Information Value Date Recorded Sex Assigned at Not on file Legal Sex Female 5:13 PM EDT Gender Identity Not on file Sexual Orientation Not on file Last Filed Vital Signs Vital Sign Reading Time Taken Comments Blood Pressure 112/65 01/19/2017 5:46 PM EDT Pulse 93 01/19/2017 5:46 PM EDT Temperature 37.2 ??C (98.9 ??F) 01/19/2017 5:46 PM ED T Respiratory Rate - - Oxygen Saturation - - Inhaled Oxygen Concentration - - Weight 56.2 kg (124 lb) 01/19/2017 5:46 PM EDT Height 163.8 cm (5' 4.5 ) 01/13/2017 6:14 PM EDT Body Mass Index 20.96 01/13/2017 6:14 PM EDT Plan of Treatment Health Maintenance Due Date Last Done Comments Influenza Vaccines (#1) 2023 01/23/20 20, 12/28/2017, 01/13/2017, Additional history exists COVID-19 Vaccine ( season) 2023 10/16/2020 DTaP,Tdap,and Td Vaccines (9 - Td or Tdap) 06/12/2030 06/12/2020, 04/25/2018, 12/09/2007, Additional history exists HIB Vaccines Completed 12/03/1997, 02/10, 1996, Additional history exists IPV Vaccines Completed 09/28/2001, 02/10, 1996, Additional history exists MMR Vaccines Completed 09/28/2001, 12/03/1997 Varicella Vaccines Completed 12/09/2007, 09/09/1998 HPV Vaccines Completed 01/01/2009, 01/12, 12/09/2007 Hepatitis A Vaccines Completed 01/15/2014, 11/18/19 11 Meningococcal Vaccine Completed 02/06/2014, 008 Hepatitis B Vaccines Completed 04/15/2015, 09/05/2014, 06/09/1997, Additional history exists Men B Vaccine Aged Out No longer elig ible based on patient's age to complete this topic Pneumococcal Vaccine Aged Out No long er eligible based on patient's age to complete this topic Procedures * Due to [place] law, this organization might not be sharing sensitive test results. Procedure Name Priority Date/Time Associated Diagnosis Comments CHLAMYDIA AND GONORRHEA, AMPLIFIED Routine 10/24/2015 3:58 PM EDT from Last 3 Months or Most Recently Relevant to Health Maintenance Results * Due to [place] law, this organization might not be sharing sensitive test results. * Chlamydia and Gonorrhoea, Amplified (10/24/2015 3:58 PM EDT) URINE GC AMP PROBE NEGATIVE [facility] Comment: No Neisseria Gonorrhoeae RNA detected in this patient's sample (REFERENCE RANGE/NORMAL VALUE: NOT DETECTED) NOTE: This test uses consumer sales representative-mediated amplification method to detect rRNA from C.Trachomatis and N.Gonorrhoeae. A negative result does not preclude infection. In the case of a negative urine result, testing of an endocervical(female) or urethral(male) specimen is recommended if there is high clinical suspicion of infection. The performance characteristics of this test have not been evaluated in children. The Aptima Combo2 assay is not intended for the evaluation of suspected sexual abuse or for other medico-legal indications. The ordering provider should assess if the patient had consensual sex without risk of sexual abuse. Consult the [facility] if needed. Contact phone number . Therapeutic failure or success cannot be determined with the Aptima Combo2 assay since nucleic acid may persist following appropriate antimicrobial therapy. The Centers for Disease Control and Prevention (CDC) recommends confirmatory retesting using culture or a different nucleic acid amplification test when positive results occur, if indicated. Testing performed or reported by [facility], a Service of [facility], [address] [place] [address] [facility] [place] [address] CLIA ??[id number] Ankur Flores MD, PhD, Transportation Engineer URINE CHLAMYDIA AMP PROBE NEGATIVE [facility] Comment: No Chlamydia Trachomatis RNA detected in this patient's sample (REFERENCE RANGE/NORMAL VALUE: NOT DETECTED) 10/24/2015 3:58 PM EDT Narrative [facility] - 10/24/2015 3:58 PM EDT URINE CHLAMYDIA GC AMP PROBE us Courtney Hall NP LAB MICROBIOLOGY - GENERAL OR DERABLES Final Result [facility] [address] [place] [id number], from Last 3 Months or Most Recently Relevant to Health Maintenance
--- OUTSIDE RECORDS SUMMARY | 2024-06-08 10:36 | XMS_ITS | Encounter Summary ---
Author Organization [facility] Address [address] [place] [phone] Phone Care Team Providers Care Principal Archaeologist Name Role Phone Courtney Hall NP Primary Care Provider Gisella benson Encounter Details Date Type Department Care Team (Late st Contact Info) Description 09/13/2012 [place]ation [facility] [place] [facility] [place] [address] Family Medicine, Physician [facility] [place] [phone] Social History Tobacco Use Types Packs/Day Years [...] on filedocumented in this encounter Care Teams Principal Archaeologist Relationship Specialty Start Date End Date Courtney Hall NP PCP - General 11/20/16 07/16/22 documented as of this encounter
--- OUTSIDE RECORDS SUMMARY | 2024-06-08 10:36 | XMS_ITS | Encounter Summary ---
Author Organization [facility] Address [address] [place] [phone] Phone Care Team Providers Care Screening Specialist Name Role Phone Courtney Hall NP Primary Care Provider Gisella benson Encounter Details Date Type Department Care Team (Late st Contact Info) Description 12/02/2016 [place] [facility] [place] [facility] [place] [address] Family Medicine, Physician Count includes the [facility] [place] [phone] Social History Tobacco Use Types Packs/Day Years Used Date Smoking Tobacco: Some Days Comments:Current some day sm oker Comments Unknown Sex and Gender Information Value Date Recorded Sex Assigned at Not on file Legal Sex Female 5:13 PM EDT Gender Identity Not on file Sexual Orientation Not on file documented as of this encounter Plan of Treatment Not on file documented as of this encounter Visit Diagnoses Not on filedocumented in this encounter Care Teams Screening Specialist Relationship Specialty Start Date End Date Courtney Hall NP PCP - General 11/20/16 07/16/22 documented as of this encounter
--- OUTSIDE RECORDS SUMMARY | 2024-06-08 10:36 | XMS_ITS | Encounter Summary ---
Author Organization [facility] Address [address] [place] [phone] Phone Care Team Providers Care Hand Iii Cutter Name Role Phone Courtney Hall NP Primary Care Provider Gisella benson Encounter Details Date Type Department Care Team (Late st Contact Info) Description 06/27/2014 Documentation [facility] [place] [facility] [address] Family Medicine, Physician [facility] [place] [phone] Social History Tobacco Use Types Packs/Day Years [...] on filedocumented in this encounter Care Teams Hand Iii Cutter Relationship Specialty Start Date End Date Courtney Hall NP PCP - General 11/20/16 07/16/22 documented as of this encounter
--- OUTSIDE RECORDS SUMMARY | 2024-06-08 10:36 | XMS_ITS | Encounter Summary ---
Author Organization [facility] Address [address] [place] [phone] Phone Care Team Providers Care Eligibility Worker Name Role Phone Courtney Hall NP Primary Care Provider Gisella benson Encounter Details Date Type Department Care Team (Late st Contact Info) Description 01/07/2010 [place] [facility] [place] [facility] [place] [address] Family Medicine, Physician [facility] [place] [phone] Social History Tobacco Use Types Packs/Day Years [...] on filedocumented in this encounter Care Teams Eligibility Worker Relationship Specialty Start Date End Date Courtney Hall NP PCP - General 11/20/16 07/16/22 documented as of this encounter
--- OUTSIDE RECORDS SUMMARY | 2024-06-08 10:36 | XMS_ITS | Encounter Summary ---
Author Organization [facility] Address [address] [place] [phone] Phone Care Team Providers Care Cylinder Tester Name Role Phone Courtney Hall NP Primary Care Provider Gisella benson Encounter Details Date Type Department Care Team (Late st Contact Info) Description 03/21/2012 [place] [facility] [place] [facility] [place] [address] Family Medicine, Physician [facility] [place] [phone] Social History Tobacco Use Types Packs/Day Years [...] on filedocumented in this encounter Care Teams Cylinder Tester Relationship Specialty Start Date End Date Courtney Hall NP PCP - General 11/20/16 07/16/22 documented as of this encounter
--- OUTSIDE RECORDS SUMMARY | 2024-06-08 10:36 | XMS_ITS | Encounter Summary ---
Author Organization [facility] Address [address] [place] [phone] Phone Care Team Providers Care Senior Materials Analyst Name Role Phone Courtney Hall NP Primary Care Provider Gisella benson Encounter Details Date Type Department Care Team (Late st Contact Info) Description 11/23/2012 Documentation [facility] [place] [facility] [place] [address] Family Medicine, Physician [facility] [place], [place] [phone] Social History Tobacco Use Types Packs/Day Years [...] on filedocumented in this encounter Care Teams Senior Materials Analyst Relationship Specialty Start Date End Date Courtney Hall NP PCP - General 11/20/16 07/16/22 documented as of this encounter
--- OUTSIDE RECORDS SUMMARY | 2024-06-08 10:36 | XMS_ITS | Encounter Summary ---
Author Organization [facility] Address [address] [place] [phone] Phone Care Team Providers Care Stock Worker Name Role Phone Courtney Hall NP Primary Care Provider Gisella benson Encounter Details Date Type Department Care Team (Late st Contact Info) Description 01/22/2016 Documentation [facility] [place] [address] Family Medicine, Physician [facility] [place], [place] [phone] Social History Tobacco Use Types Packs/Day Years [...] on filedocumented in this encounter Care Teams Stock Worker Relationship Specialty Start Date End Date Courtney Hall NP PCP - General 11/20/16 07/16/22 documented as of this encounter
--- OUTSIDE RECORDS SUMMARY | 2024-06-08 10:36 | XMS_ITS | Clinical Summary ---
Author Organization [facility] Address [address] [place] [address] [address] [place] [address] Care Team Providers Care Referral And Information Aide Name Role Phone Unavailable Primary Care Provider Unavailabl e Allergies No known active allergies Medications Kariva 0.15-0.02/0.01 MG (30/08) tablet TAKE 1 TABLET BY MOUTH EVERY DAY AT THE SAME TIME PREFERABLY EITHER AFTER DINNER OR AT BEDTIME 4 Active albuterol 108 (90 Base) MCG/ACT inhaler Inhale 2 puffs every 4 (four) hours if needed. 8 Active Active Problems Problem Noted Date Diagnosed Date Poor weight gain of , second trimester 04/16/2020 Overview (11/24/2023): 04/16/2020- Asked to increase calories intake. Had Hyperemesis at beginning of preg- now resolved Subchorionic bleed 01/23/2020 Overview (11/24/2023): Small Subchorionic bleed noted on US on 12/15/2019 Marijuana use 12/23/2017 Overview (11/24/2023): UDS positive at OB work up 04/16/2020- Utox positive for MJ- pt denies continued use 06/27/20- MJ positive Anxiety and depression 03/11/2016 Overview (11/24/2023): Has therapist and Psych in place- On meds and stable on current regiment Bipolar disorder 03/11/2016 Overview (11/24/2023): Has Therapist and Psych in place- On meds (Thinks Zoloft)- will bring at next visit Fibromyalgia 03/11/2016 IBS (irritable bowel syndrome) 03/11/2016 ADHD 06/12/2014 PTSD (post-traumatic stress disorder) 08/19/2009 Social History Tobacco Use Types Packs/Day Years Used Date Smoking Tobacco: Every Day Cigarettes Smokeless Tobacco: Never Tobacco Cessation:Ready to Q uit: Not Asked; Counseling Given: Not Answered Comments Unknown Sex and Gender Information Value Date Recorded Sex Assigned at Female 11/23/2023 1:53 PM EDT Legal Sex Female 1:52 PM EDT Gender Identity Female 11/23/2023 1:53 PM EDT Sexual Orientation Straight 11/23/2023 1: 53 PM EDT Last Filed Vital Signs Vital Sign Reading Time Taken Comments Blood Pressure 128/66 01/05/2024 9:24 AM EDT Pulse - - Temperature - - Respiratory Rate - - Oxygen Saturation - - Inhaled Oxygen Concentration - - Weight - - Height - - Body Mass Index - - Plan of Treatment Health Maintenance Due Date Last Done Comments Depression Screening 1996 HIV Screening 1996 Lipid Panel 1996 SDOH Screening 1996 Alcohol/Substance Use Screening 2008 Family Planning (PISQ) 08/25/2011 Hepatitis C Screening 2014 Pneumococcal Vaccine: Pediatrics (0 to 5 Years) and At-Risk Patients (6 to 49) Years) (1 of 2 - PCV) 08/25/2015 Pap Smear 2017 COVID-19 Vaccine (2 - season) 2023 10/16/2020 Influenza Vaccine (#1) 2023 , 12/28/2017, 01/13/2017, Additional history exists Dental Oral Exam 05/27/2024 11/24/2023 Dental Prophylaxis 05/27/2024 11/24/2023 Dental X-Ray: Bitewings 11/24/2024 11/24/2023 Tobacco Screening 01/12/2025 01/13/2024 Dental X-Ray: Full Mouth 11/24/2026 11/24/2023 DTaP/Tdap/Td Vaccines (9 - Td or Tdap) 06/12/2030 06/12/2020, 04/25/2018, 12/09/2007, Additional history exists Zoster Vaccines (1 of 2) 2046 RSV Patients and Patients Aged 60 years or older (1 - 1-dose 75+ series) 08/25/2071 HIB Vaccines Completed 12/03/1997, 02/10, 1996, Additional history exists IPV Vaccines Completed 09/28/2001, 02/10, 1996, Additional history exists HPV Vaccines Completed 01/01/2009, 01/12, 12/09/2007 Hepatitis A Vaccines Completed 01/15/2014, 11/18/19 11 Meningococcal Vaccine Completed 02/06/2014, 008 Hepatitis B Vaccines Completed 04/15/2015, 09/05/2014, 06/09/1997, Additional history exists RSV under 20 months Aged Out No longe r eligible based on patient's age to complete this topic Rotavirus Vaccines Aged Out No longer eligible based on patient's age to complete this topic Procedures Procedure Name Priority Date/Time Associated Diagnosis Comments Full PROPHYLAXIS - ADULT Routine 024 8:00 AM EDT INTRAORAL - COMPLETE SERIES OF RADIOGRAPHIC IMAGES Routine 11/24/2023 8:00 AM EDT PERIODIC ORAL EVALUATION - ESTABLISHED PATIENT Routine 11/24/2023 8:00 AM EDT from Last 3 Months or Most Recently Relevant to Health Maintenance Insurance DENTAL - HSN PARTIAL (MEDICAID)
--- OUTSIDE RECORDS SUMMARY | 2024-06-08 10:36 | XMS_ITS | Encounter Summary ---
Author Organization [facility] Address [address] [place] [phone] Phone Care Team Providers Care Staff Auditor Name Role Phone Courtney Hall NP Primary Care Provider Gisella benson Encounter Details Date Type Department Care Team (Late st Contact Info) Description 01/07/2010 Documentation [facility] [place] [facility] [place] [address] Family Medicine, Physician [facility] [place] [phone] Social History Tobacco Use Types Packs/Day Years [...] on filedocumented in this encounter Care Teams Staff Auditor Relationship Specialty Start Date End Date Courtney Hall NP PCP - General 11/20/16 07/16/22 documented as of this encounter
== END 2024-06-08 09:53 | disposition home or self-care (01) ==
PROVIDERS: PCP Internal Medicine; Visit Provider Physician Assistant Surgical
DX: I83.11 Varicose veins of right lower extremity with inflammation (principal); I83.12 Varicose veins of left lower extremity with inflammation
CPT/HCPCS: 99214

== ENCOUNTER → 2024-06-08 09:24 | Outpatient (BNVA) | payer OTHER, SELFPAY | PROVIDERS: PCP Internal Medicine; Visit Provider Physician Assistant Surgical | DX: I83.11 Varicose veins of right lower extremity with inflammation (principal); I83.12 Varicose veins of left lower extremity with inflammation | CPT/HCPCS: 99212 ==

== ENCOUNTER 2025-02-05 09:15 | Emergency (ER) | payer OTHER, SELFPAY ==
--- NOTE | ~2025-02-05 | US_ITS ---
EXAMINATION: US FIRST TRIMESTER OB HISTORY: L side pain concern for ectopic TECHNIQUE: Endovaginal scanning was performed. FINDINGS: A single intrauterine gestational sac, yolk sac, and pole are identified. The crown-rump length is 0.15 cm which is too small for date calculation. cardiac activity is noted with a heart rate of 112 bpm. Right ovary: The right ovary measures 4.5 x 2.3 x 3.0 cm and is unremarkable. Left ovary: The left ovary measures 2.2 x 1.5 x 2.3 cm and is unremarkable. Cul-de-sac: No free fluid US/US OB pelvic and transvaginal IMPRESSION: Single live intrauterine gestation. The crown-rump length is too small for date calculation at this time. Follow-up is recommended. Electronically signed by: Romulo Suh MD 02/05/2025 10:59 AM EDT
[2025-02-05 09:20] VITALS: BP 131/74; PULSE 90; RESP 16; TEMP 36.4; O2SAT 98; BMI 19.7
[2025-02-05 09:42] LABS: MANUAL DIFF FLAG NO
[2025-02-05 09:43] LABS: Hematocrit 41.0 % (37.0-47.0); Hemoglobin 13.9 g/dl (12.0-16.0); Imm Gran Abs Auto 0.07 X10*3/uL (0.00-0.03); Imm Gran Pct Auto 0.8 % (0.0-0.4); Lymphocytes Absolute Auto 1.4 X10*3/uL (1.2-4.9); Mean Corpuscular HGB Conc 33.9 g/dl (31.0-35.0); Mean Corpuscular Hemoglobin 29.6 pg (27.0-33.0); Mean Corpuscular Volume 87.2 fL (80.0-98.0); NRBC Abs Auto 0.000 X10*3/uL (0.0-0.012); NRBC Pct Auto 0.0 /100WBC (0.0-0.2); Platelet Count 165 X10*3/uL (160-400); Red Blood Count 4.70 X10*6/uL (4.20-5.50); White Blood Count 8.3 X10*3/uL (4.8-10.8)
--- NOTE | 2025-02-05 09:55 | ED.ABDPAIN ---
HPI - Abdominal Pain General Chief Complaint: Abdominal Pain Stated Complaint: preg+, shoulder pain, lower back pain Time Seen by Provider: 02/05/25 09:26 Source: patient and old records reviewed Mode of arrival: ambulatory Limitations: no limitations History of Present Illness ED Provider: JIGAR HPI narrative: 29 yo female with PMH of anxiety and asthma LMP 12/04 [facility] they could not confirm IUP on US but she did have pos test. She has no hx of surgeries or prior ectopic. She has had abd pain since that visit with n/v but fevers, no discharge, no vaginal bleeding. The pain has worsened and she cannot sleep she notes it radiates up to the L shoulder. No syncope. MD elicited complaint: abdominal pain Pertinent past history: other Onset (ago): day(s) (few) Pain Consistency: constant Location: suprapubic and pelvis Severity: severe Quality: stabbing Radiation: other (L shoulder) Migration to: other Exacerbating factors: vomiting and movement Relieving factors: nothing Context: other Associated symptoms: nausea and vomiting Related Data Home Medications ?Medication ?Instructions ?Recorded ?Confirmed albuterol sulfate 90 mcg/actuation 2 puff inhalation Q6H PRN 03/15/24 03/17/24 aerosol inhaler (Ventolin HFA) Shortness Of Breath Or Wheezing Allergies Allergy/AdvReac Type Severity Reaction Status Date / Time No Known Allergies Allergy Verified 02/05/25 09:23 Review of Systems Review of Systems Constitutional : No Weight loss, No Fever, No Chills ENT/Mouth : No sore throat, No Rhinorrhea Eyes: No Swelling, No Redness Cardiovascular : No Chest Pain, No SOB, NoEdema Respiratory : No Cough, No Sputum, No Wheezing Gastrointestinal : Positive Nausea, Positive Vomiting, no Diarrhea, positive abdominal Pain, No Hematochezia, No Melena Genitourinary : No Dysuria, No Urinary Frequency, No Hematuria, No Urgency Musculoskeletal : No joint pain, No Myalgias, No Joint Swelling Skin : No Skin Lesions, No rash Neuro : No Weakness, No Numbness, No Dizziness, No Headache All other systems reviewed and are negative. [facility] Past Medical History Attestation statement: The following information was validated with the patient. Source: old records reviewed Medical History Hemorrhoids with complication Irritable bowel syndrome Attention deficit disorder Anxiety Asthma Tobacco abuse Surgical History History of hemorrhoidectomy (~03/17/24) History of esophagogastroduodenoscopy (EGD) Hx of colonoscopy No pertinent past surgical history Family History Family History Father Medical history unknown Mother No problems noted. 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 Oriented X3. in pain mild acute distress. Eyes: Pupils equal, round and reactive to light. ENT: Pharynx normal. Neck: Normal inspection. Neck supple. CVS: Normal heart rate and rhythm. Pulses normal. Respiratory: No respiratory distress. Breath sounds normal. Abdomen: slightly distended diffuse ttp guarding noted. Skin: Skin warm and dry. pale skin color. Extremities: No lower extremity edema. No calf ttp Neuro: Oriented X 3. No motor deficit. No sensory deficit. CN2-12 intact Procedures Procedure Narrative Procedure Narrative: EMERGENCY ULTRASOUND INTERPRETATION-Point of Care Trauma (FAST)? Limited Abdominal The study reveals: Impression:? -Peritoneum: NO FREE FLUID Indication: abd pain -Mechanism:? -Type: pain Fluid (FAST Views):? -Hepatorenal: NEGATIVE -Perisplenic: NEGATIVE -Retrovesical/Pelvic: NEGATIVE, + sac seen in IUP Performed by: JIGAR Date: 02/05/25 Time: 1014am CPT Codes: 24495 ; 07917 ; 41711; Reference Codes? [email or web address] Medical Decision Making Medical Decision Making [facility] Narrative: 29 yo female with PMH of asthma and anxiety LMP 12/04 here with lower abdominal pain no vag bleeding, no n/v, no fevers and pain makes her L shoulder hurt at this time I have obtained FAST there is no free fluid, started on IV pain control and IV, stat US for ectopic. No CP/SOB to suggest ACS or VTE Differential Diagnosis Differential Diagnoses: The differential diagnosis associated with the presentation includes ectopic, round ligament pain Admission/Observation Consideration of admission/observation: Escalation of care including admission/observation considered labs stable pain resolved FAST negative US normal IUP repeat exam benign patient has felt much better and symptoms resolved after initial FAST when no fluid was seen and IUP seen Lab Data [facility] Lab Attestation statement: I reviewed the patient's lab results. 02/05/25 09:32 02/05/25 09:32 Labs: Lab Results 02/05/25 02/05/25 02/05/25 Range/Units 09:32 09:51 11:38 WBC 8.3 (4.8-10.8) X10*3/uL RBC 4.70 (4.20-5.50) X10*6/uL Hgb 13.9 (12.0-16.0) g/dl Hct 41.0 (37.0-47.0) % MCV 87.2 (80.0-98.0) fL MCH 29.6 (27.0-33.0) pg MCHC 33.9 (31.0-35.0) g/dl RDW 13.1 (11.0-16.0) % Plt Count 165 (160-400) X10*3/uL MPV 10.6 (9.4-12.3) fL Immature Gran % (Auto) 0.8 H (0.0-0.4) % Neut % (Auto) 74.4 H (45-73) % Lymph % (Auto) 17.3 L (20-40) % [place] % (Auto) 6.4 (2-11) % Eos % (Auto) 0.5 (0-4) % Baso % (Auto) 0.6 (0-2) % Lymph # (Auto) 1.4 (1.2-4.9) X10*3/uL [place] # (Auto) 0.5 (0.1-1.2) X10*3/uL Eos # (Auto) 0.0 (0.0-0.4) X10*3/uL Baso # (Auto) 0.1 (0.0-0.2) X10*3/uL Abs Immat Gran (auto) 0.07 H (0.00-0.03) X10*3/uL Absolute Neuts (auto) 6.2 (2.0-8.3) x10*3/uL Absolute Nucleated RBC 0.000 (0.0-0.012) X10*3/uL Nucleated RBC % (auto) 0.0 (0.0-0.2) /100WBC PT 13.3 H (10.9-12.4) SEC INR 1.2 H (0.9-1.1) Sodium 136 (135-145) mmol/L Potassium 3.7 (3.3-5.1) mmol/L Chloride 107 (96-108) mmol/L Carbon Dioxide 23 (22-29) mmol/L Anion Gap 10 L (12-20) BUN 6 L (9-16) mg/dL Creatinine 0.54 (0.5-1.4) mg/dL Estim Creat Clear Calc 127.7 Estimated GFR > 60 Random Glucose 109 (60-115) mg/dL Calcium 9.2 (8.4-10.2) mg/dL Magnesium 1.8 (1.6-2.6) mg/dL Total Bilirubin 0.7 (0.0-1.0) mg/dL Direct Bilirubin 0.2 (0.0-0.5) mg/dL AST 32 H (5-31) U/L ALT 31 (0-31) U/L Alkaline Phosphatase 90 (39-117) U/L Total Protein 7.5 (6.5-8.0) g/dL Albumin 4.5 (3.5-5.0) g/dL Beta HCG, Quant 90863 mIU/mL Urine Color Yellow Urine Appearance Clear Urine pH 7.5 (5.0-9.0) Ur Specific Brule 1.010 (1.005-1.025) Urine Protein Negative (Neg-Trace) mg/dL Urine Glucose (UA) Negative (Negative) mg/dL Urine Ketones Negative (Negative) mg/dL Urine Blood Negative (Negative) Urine Nitrite Negative (Negative) Ur Leukocyte Esterase Negative (Negative) Blood Type A Positive Antibody Screen NEGATIVE Independent Interpretation I performed an independent interpretation of an: Ultrasound (IUP) Radiology Impression Discussion of test interpretation with radiology: I have reviewed the radiologist's reading. External Record Review External record reviewed: Outpatient record Medications Administered Discontinued Medications Generic Name Dose Route Start Last Admin Trade Name Freq PRN Reason Stop Dose Admin Fentanyl 50 mcg 02/05/25 09:30 02/05/25 10:03 Fentanyl Citrate/Pf 100 Mcg/2 Ml Vial IVPUSH 02/05/25 09:31 50 mcg ONCE ONE Administration Protocol Lactated Ringer's 1,000 mls @ 999 mls/hr 02/05/25 09:39 02/05/25 11:31 Lr IV 02/05/25 10:39 Infused .Q1H1M ONE Infusion Ondansetron HCl 4 mg 02/05/25 09:30 02/05/25 10:03 Ondansetron Hcl 4 Mg/2 Ml Vial IVPUSH 02/05/25 09:31 4 mg ONCE ONE Administration Discharge Plan Discharge Clinical Impression: Abdominal pain Qualifiers: Abdominal location: lower abdomen, unspecified Qualified Code(s): R10.30 - Lower abdominal pain, unspecified Qualifiers: Weeks of gestation: less than 8 weeks Qualified Code(s): Z3A.01 - Less than 8 weeks gestation of Patient Disposition: Home, Self-Care Instructions: Abdominal Pain in (ED) Additional Instructions: your labs are reassuring your ultrasound confirms no fluid in the belly it also shows a pregancy in the uterus with a heartbeat it is too small for dates I would advise repeat hcg testing in 3 days repeat ultrasound in 5 days return for worsening symptoms or concerns such as severe pain and bleeding it is safe to take tylenol in follow up with your OB provider this week Prescriptions: No Action albuterol sulfate [Ventolin HFA] 90 mcg/actuation Hfa Aerosol Inhaler 2 puff INHALATION Q6H PRN (Reason: Shortness Of Breath Or Wheezing) Print Language: Romanian
[2025-02-05] MEDS: Lactated Ringers 1,000 ML 999 ML IV (10:04)
[2025-02-05 10:06] LABS: Alanine Aminotransferase 31 U/L (0-31); Albumin Level 4.5 g/dL (3.5-5.0); Alkaline Phosphatase 90 U/L (39-117); Anion Gap 10 (12-20); Aspartate Amino Transferase 32 U/L (5-31); Blood Urea Nitrogen 6 mg/dL (9-16); Calcium 9.2 mg/dL (8.4-10.2); Carbon Dioxide 23 mmol/L (22-29); Chloride 107 mmol/L (96-108); Creatinine Clr Calc Pharmacy 127.7; Estimated Glomerular Filt Rate > 60; Magnesium 1.8 mg/dL (1.6-2.6); Potassium 3.7 mmol/L (3.3-5.1); Sodium 136 mmol/L (135-145); Total Protein 7.5 g/dL (6.5-8.0)
[2025-02-05 10:07] LABS: INTERNATIONAL NORM RATIO 1.2 (0.9-1.1); Prothrombin Time 13.3 SEC (10.9-12.4)
[2025-02-05 10:59] VITALS: BP 100/49; PULSE 69; RESP 16; O2SAT 99
--- OUTSIDE RECORDS SUMMARY | 2025-02-05 11:02 | XMS_ITS | Encounter Summary ---
Author Organization [facility] Address [address] [place] [address] Phone Care Team Providers Care Tool And Die Supervisor Name Role Phone Courtney Hall NP Primary Care Provider Gisella benson Encounter Details Date Type Department Care Team (Late st Contact Info) Description 06/27/2014 Documentation [facility] [place] [facility] [place] [address] Family Medicine, Physician [facility] [place] [phone] Social History Tobacco Use Types Packs/Day Years [...] on filedocumented in this encounter Care Teams Tool And Die Supervisor Relationship Specialty Start Date End Date Courtney Hall NP PCP - General 11/20/16 07/16/22 documented as of this encounter
--- OUTSIDE RECORDS SUMMARY | 2025-02-05 11:02 | XMS_ITS | Encounter Summary ---
Author Organization [facility] Address [address] [place] [address] Phone Care Team Providers Care Social Media Content Manager Name Role Phone Courtney Hall NP Primary Care Provider Gisella benson Encounter Details Date Type Department Care Team (Late st Contact Info) Description 01/07/2010 Documentation [facility] [place] [facility] [address] Family Medicine, Phys[place] [facility] [place] [phone] Social History Tobacco Use Types Packs/Day Years [...] on filedocumented in this encounter Care Teams Social Media Content Manager Relationship Specialty Start Date End Date Courtney Hall NP PCP - General 11/20/16 07/16/22 documented as of this encounter
--- OUTSIDE RECORDS SUMMARY | 2025-02-05 11:02 | XMS_ITS | Encounter Summary ---
Author Organization [facility] Address [address] [place] [address] Phone Care Team Providers Care Shade Maker Name Role Phone Courtney Hall NP Primary Care Provider Gisella benson Encounter Details Date Type Department Care Team (Late st Contact Info) Description 01/07/2010 [place] [facility] [place] [facility] [place] [address] Family Medicine, Physician [facility] [place] [phone] Social History Tobacco Use Types Packs/Day Years [...] on filedocumented in this encounter Care Teams Shade Maker Relationship Specialty Start Date End Date Courtney Hall NP PCP - General 11/20/16 07/16/22 documented as of this encounter
--- OUTSIDE RECORDS SUMMARY | 2025-02-05 11:02 | XMS_ITS | Encounter Summary ---
Author Organization [facility] Address [address] [place] [address] Phone Care Team Providers Care Template Clerk Name Role Phone Courtney aHll NP Primary Care Provider Gisella benson Encounter Details Date Type Department Care Team (Late st Contact Info) Description 01/07/2010 Documentation [facility] [place] Family Medicine [facility] [place] [address] Family Medicine, Physician [facility] [place] [phone] Social History Tobacco Use Types Packs/Day Years [...] on filedocumented in this encounter Care Teams Template Clerk Relationship Specialty Start Date End Date Courtney Hall NP PCP - General 11/20/16 07/16/22 documented as of this encounter
--- OUTSIDE RECORDS SUMMARY | 2025-02-05 11:02 | XMS_ITS | Encounter Summary ---
Author Organization [facility] Address [address] [place] [address] Phone Care Team Providers Care Millstone Cleaner Name Role Phone Courtney Hall NP Primary Care Provider Gisella benson Encounter Details Date Type Department Care Team (Late st Contact Info) Description 11/23/2012 Documentation [facility] [place] Medicine [facility] [place] [address] Family Medicine, Physician [facility] [place] [phone] Social History Tobacco Use Types Packs/Day Years [...] on filedocumented in this encounter Care Teams Millstone Cleaner Relationship Specialty Start Date End Date Courtney aHll NP PCP - General 11/20/16 07/16/22 documented as of this encounter
--- OUTSIDE RECORDS SUMMARY | 2025-02-05 11:02 | XMS_ITS | Clinical Summary ---
Author Organization [facility] Address [address] [place] [address] Phone Care Team Providers Care Squeegee Operator Name Role Phone Unavailable Primary Care [...] 93 01/19/2017 5:46 PM EDT Temperature 37.2 C (98.9 F) 01/19/2017 5:46 PM EDT Respiratory Rate - - Oxygen Saturation - - Inhaled Oxygen Concentration - - Weight 56.2 kg (124 lb) 01/19/2017 5:46 PM EDT Height 163.8 cm (5' 4.5 ) 01/13/2017 6:14 PM EDT Body Mass Index 20.96 01/13/2017 6:14 PM EDT Plan of Treatment Health Maintenance Due Date Last Done Comments Influenza Vaccines (#1) 2024 01/23/20 20, 12/28/2017, 01/13/2017, Additional history exists COVID-19 Vaccine (2 - season) 2024 10/16/2020 DTaP,Tdap,and Td Vaccines (9 - Td [...] complete this topic Procedures * Due to [place] [employer] law, this organization might not be sharing sensitive test results. Procedure Name Priority Date/Time Associated Diagnosis Comments CHLAMYDIA AND GONORRHEA, AMPLIFIED Routine 10/24/2015 3:58 PM EDT from Last 3 Months or Most Recently Relevant to Health Maintenance Results * Due to [place] [employer] law, this organization might not be sharing sensitive test results. * Chlamydia and Gonorrhoea, Amplified (10/24/2015 3:58 PM EDT) URINE GC AMP PROBE NEGATIVE [facility] Comment: No Neisseria Gonorrhoeae RNA detected in this patient's sample (REFERENCE RANGE/NORMAL VALUE: NOT DETECTED) NOTE: This test uses orchard pruner-mediated amplification method to detect rRNA from C.Trachomatis [...] without risk of sexual abuse. Consult the [facility] if needed. Contact phone number . Therapeutic failure or success cannot be determined with the Aptima Combo2 assay since nucleic acid may persist following appropriate antimicrobial therapy. The Centers for Disease Control and Prevention (CDC) recommends confirmatory retesting using culture or a different nucleic acid amplification test when positive results occur, if indicated. Testing performed or reported by [facility], a Service of [facility], [address] [place] [address] [place] [id number] Ankur Flores MD, PhD, Absorption Operator URINE CHLAMYDIA AMP PROBE NEGATIVE [facility] Comment: No Chlamydia Trachomatis RNA detected in this patient's sample (REFERENCE RANGE/NORMAL VALUE: NOT DETECTED) 10/24/2015 3:58 PM EDT Narrative [facility] - 10/24/2015 3:58 PM EDT URINE CHLAMYDIA GC AMP PROBE us Courtney Hall NP LAB MICROBIOLOGY - GENERAL OR DERABLES Final Result [facility] [address] [place] [address], from Last 3 Months or Most Recently Relevant to Health Maintenance
--- OUTSIDE RECORDS SUMMARY | 2025-02-05 11:02 | XMS_ITS | Encounter Summary ---
Author Organization [facility] Address [address] [place] [address] Phone Care Team Providers Care Park Ranger Name Role Phone Courtney Hall NP Primary Care Provider Gisella benson Encounter Details Date Type Department Care Team (Late st Contact Info) Description 03/21/2012 Documentation [facility] [place] [facility] [place] [address] Family Medicine, Physician [facility] [place], [place] [phone] Social History Tobacco Use Types Packs/Day Years [...] on filedocumented in this encounter Care Teams Park Ranger Relationship Specialty Start Date End Date Courtney Hall NP PCP - General 11/20/16 07/16/22 documented as of this encounter
--- OUTSIDE RECORDS SUMMARY | 2025-02-05 11:02 | XMS_ITS | Encounter Summary ---
Author Organization [facility] Address [address] [place] [phone] Phone Care Team Providers Care Polymerization Oven Operator Name Role Phone Courtney Hall NP Primary Care Provider Gisella benson Encounter Details Date Type Department Care Team (Late st Contact Info) Description 01/07/2010 Documentation [facility] [place] Family Medicine [facility] [place] [address] Family Medicine, Physician [facility] [place] [phone] Social History Tobacco Use Types Packs/Day Years [...] on filedocumented in this encounter Care Teams Polymerization Oven Operator Relationship Specialty Start Date End Date Courtney Hall NP PCP - General 11/20/16 07/16/22 documented as of this encounter
--- OUTSIDE RECORDS SUMMARY | 2025-02-05 11:02 | XMS_ITS | Clinical Summary ---
Author Organization 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: therapist at [facility] Fibromyalgia DX:Fibromyalgia IBS (irritable bowel syndrome) D [...] of 3 - 19+ 3-dose series) 08/25/2015 HPV Vaccines (1 - 3-dose SCD M series) 08/25/2023 Cervical Cancer Screening: P ap Smear 09/05/2023 09/04/2020, 12/28/2017 Depression Screening 04/12/2024 COVID-19 Vaccine (2 - 2024-2 6 season) 2024 10/16/2020 Influenza Vaccine (#1) 2024 , 12/28/2017 DTaP,Tdap,and Td Vaccines (3 - Td or Tdap) 06/12/2030 06/12/2020, 04/25/2018 RSV Immunization Adult Patients (1 - 1-dose 75+ series) 08/25/2071 HIB Vaccines Aged Out No longer eligi [...] age to complete this topic Meningococcal B Vaccine Aged Out No l onger eligible based on patient's age to complete this topic Pneumococcal Vaccine: Pediatrics (0 to 5 Years) and At-Risk Patients (6 to 49 Years) Aged Out No longer eligible b [...] RESULTING AGENCY - 09/16/2020 1:01 PM EDT [id number] THINPREP PAP, IMAGED: NEGATIVE FOR SQUAMOUS INTRAEPITHELIAL LESION AND MALIGNANCY . REACTIVE CELLULAR CHANGES. THOMAS SHARIF , RJ(ASCP) (CASE SCREENED 09 12 2020) MAMADOU CORRAL M.D. , PATHOLOGIST (CASE ELECTRONICALLY SIGNED 09 13 2020) ADEQUACY: SATISFACTORY ENDOCERVICAL/TRANSFORMATION ZONE COMPONENT PRESENT. SOURCE: THINPREP PAP HPV IF ASCUS, CERVICAL, IMAGED CLINICAL INFORMATION: HPV IF DIAGNOSIS OF ASCUS. POST , PAP HX NEG, Z12.4 Sara [facility] CYTOLOGY ORDERABLES Final Result HISTORICAL TESTING LAB RESULTING AGENCY from Last 3 Months or Most Recently Relevant to Health Maintenance Care Teams Dowel Maker Relationship Specialty Start Date End Date Bandar Lewis MD [address] [place] [address] Dr [address] [employer] [place] [address] PCP - General Internal Medicine 10/12/18
--- OUTSIDE RECORDS SUMMARY | 2025-02-05 11:02 | XMS_ITS | Encounter Summary ---
Author Organization [facility] Address [address] [place] [address] Phone Care Team Providers Care Car Salter Name Role Phone Courtney Hall NP Primary Care Provider Gisella benson Encounter Details Date Type Department Care Team (Late st Contact Info) Description 01/22/2016 [place]ation [facility] [place] [facility] [place] [address] Family Medicine, Physician [facility] [place], [place] [phone] Social History Tobacco Use Types Packs/Day Years [...] on filedocumented in this encounter Care Teams Car Salter Relationship Specialty Start Date End Date Courtney Hall NP PCP - General 11/20/16 07/16/22 documented as of this encounter
--- OUTSIDE RECORDS SUMMARY | 2025-02-05 11:02 | XMS_ITS | Clinical Summary ---
Author Organization [employer] Address [address] [place] [address] [address] [place] [address] Care Team Providers Care Bit Welder Name Role Phone Unavailable Primary Care Provider [...] Comments Depression Screening 1996 HIV Screening 1996 SDOH Screening 1996 Disability Screening 1996 Alcohol/Substance Use Screening 2008 Family Planning (PISQ) 08/25/2011 Hepatitis C Screening 2014 Pneumococcal Vaccine: Pediatrics (0 to 5 Years) and At-Risk Patients (6 to 49) Years (1 of 2 - PCV) 08/25/2015 Pap Smear 2017 Dental Oral Exam 05/27/2024 11/24/2023 Dental Prophylaxis 05/27/2024 11/24/2023 Dental X-Ray: Bitewings 11/24/2024 11/24/2023 COVID-19 Vaccine ( season) 2024 10/16/2020 Influenza Vaccine (#1) 2024 , 12/28/2017, 01/13/2017, Additional history exists Tobacco Screening 01/12/2025 01/13/2024 Dental X-Ray: Full [...] Completed 04/15/2015, 09/05/2014, 06/09/1997, Additional history exists Meningococcal B Vaccine Aged Out No l onger eligible based on patient's age to complete this topic RSV under 20 months Aged Out No [...]
--- OUTSIDE RECORDS SUMMARY | 2025-02-05 11:02 | XMS_ITS | Encounter Summary ---
Author Organization [facility] Address [address] [place] [phone] Phone Care Team Providers Care Steelscope Operator Name Role Phone Courtney Hall NP Primary Care Provider Gisella benson Encounter Details Date Type Department Care Team (Late st Contact Info) Description 12/02/2016 Documentation [facility] [place] Family Medicine [facility] [place] [address] Family Medicine, Physician [facility] [place] [phone] Social History Tobacco Use Types Packs/Day Years [...] on filedocumented in this encounter Care Teams Steelscope Operator Relationship Specialty Start Date End Date Courtney Hall NP PCP - General 11/20/16 07/16/22 documented as of this encounter
--- OUTSIDE RECORDS SUMMARY | 2025-02-05 11:02 | XMS_ITS | Encounter Summary ---
Author Organization [facility] Address [address] [place] [phone] Phone Care Team Providers Care Cement Grinding [employer] Operator Name Role Phone Courtney Hall NP Primary Care Provider Gisella benson Encounter Details Date Type Department Care Team (Late st Contact Info) Description 09/13/2012 Documentation [facility] [place] Family Medicine [facility] [place] [address] Family Medicine, Physician [facility] [place], [place] [id number] Social History Tobacco Use Types Packs/Day Years [...] on filedocumented in this encounter Care Teams [employer] Gr[employer] Operator Relationship Specialty Start Date End Date Courtney Hall NP PCP - General 11/20/16 07/16/22 documented as of this encounter
[2025-02-05 11:44] LABS: Appearance Urine Clear; Glucose Urine UA Negative (Negative); PH 7.5 (5.0-9.0); Specific Gravity - Urine 1.010 (1.005-1.025)
[2025-02-05 12:03] VITALS: BP 100/49; PULSE 69; RESP 16; TEMP 36.8; O2SAT 99
== END 2025-02-05 12:21 | disposition home or self-care (01) ==
PROVIDERS: Emergency Provider Emergency Medicine; PCP Internal Medicine
DX: O26.91 Pregnancy related conditions, unspecified, first trimester (principal); O21.0 Mild hyperemesis gravidarum; Z3A.08 8 weeks gestation of pregnancy; R10.30 Lower abdominal pain, unspecified; M54.50 Low back pain, unspecified; M25.512 Pain in left shoulder; R10.22 Pelvic and perineal pain left side; Z79.899 Other long term (current) drug therapy
CPT/HCPCS: 36415; 76604; 76705; 76801; 76817; 80048; 80076; 81003; 83735; 84702; 85025; 85610; 86850; 86900; 86901; 93308; 96361; 96374; 96375; 99284; J2405; J3010; J7120

== ENCOUNTER → 2025-02-05 09:25 | Outpatient (BNV) | payer OTHER, SELFPAY | PROVIDERS: Emergency Provider Emergency Medicine; PCP Internal Medicine; Visit Provider Radiology Diagnostic Radiology | DX: O26.891 Other specified pregnancy related conditions, first trimester (principal); Z3A.00 Weeks of gestation of pregnancy not specified | CPT/HCPCS: 76801; 76817 ==

== ENCOUNTER 2025-03-14 08:37 | Outpatient (REF) | payer OTHER, SELFPAY ==
[2025-03-14 23:44] LABS: CT PCR NOT DETECTED (Not Detect.); NG PCR NOT DETECTED (Not Detect.)
== END 2025-03-14 08:38 | disposition home or self-care (01) ==
LOC: HO.LNP 08:37
PROVIDERS: PCP Internal Medicine; Visit Provider Advanced Practice Midwife
DX: Z01.419 Encounter for gynecological examination (general) (routine) without abnormal findings (principal); Z20.2 Contact with and (suspected) exposure to infections with a predominantly sexual mode of transmission
CPT/HCPCS: 87491; 87591; 88175

== ENCOUNTER 2025-03-14 09:57 | Outpatient (REF) | payer OTHER, SELFPAY ==
--- NOTE | ~2025-03-14 | US_ITS ---
EXAMINATION: US FIRST TRIMESTER OB HISTORY: Z33.1 - state, incidental, uncertain LMP TECHNIQUE: Endovaginal scanning was performed. FINDINGS: There is a single intrauterine . AUA = 11 weeks 4 days BRIAN(AUA) = 09/29/2025 LMP = 01/04/2025 GA(LMP) = 9 weeks 6 days BRIAN(LMP) = 10/11/2025 CRL: 4.7 cm Yolk Sac: seen FHR: 158 bpm Right ovary: The right ovary measures 4.3 x 1.8 x 2.0 cm and is unremarkable. Left ovary: The left ovary measures 2.4 x 1.4 x 2.7 cm and is unremarkable. Cul-de-sac: No free fluid US/US OB <= 14 weeks fetus IMPRESSION: Single, live intrauterine of estimated gestational age 11 weeks, 4 days. Electronically signed by: Romulo Suh MD 03/14/2025 11:33 AM [facility]
--- OUTSIDE RECORDS SUMMARY | 2025-03-14 11:13 | XMS_ITS | Clinical Summary ---
Author Organization [employer] Address [address] [facility] [address] [place] [address] Care Team Providers Care Marriage And Family Social Worker Name Role Phone Unavailable Primary Care Provider [...]
== END 2025-03-14 09:58 | disposition home or self-care (01) ==
LOC: HO.US 09:57
PROVIDERS: PCP Internal Medicine; Visit Provider Advanced Practice Midwife
DX: O36.80X0 Pregnancy with inconclusive fetal viability, not applicable or unspecified (principal); Z01.419 Encounter for gynecological examination (general) (routine) without abnormal findings; Z12.39 Encounter for other screening for malignant neoplasm of breast; Z20.2 Contact with and (suspected) exposure to infections with a predominantly sexual mode of transmission; Z72.0 Tobacco use
CPT/HCPCS: 76801

== ENCOUNTER → 2025-03-14 10:01 | Outpatient (BNV) | payer OTHER, SELFPAY | PROVIDERS: PCP Internal Medicine; Visit Provider Radiology Diagnostic Radiology | DX: Z33.1 Pregnant state, incidental (principal); Z3A.11 11 weeks gestation of pregnancy | CPT/HCPCS: 76801; 76817 ==